=== PATIENT | female | born 1935 | race Caucasian/White ===

== ENCOUNTER → 2016-12-17 | Day surgery (SDC) | payer MEDICARE, OTHER ==
--- NOTE | 2016-12-17 08:49 | RAD ---
Indication low back pain for months. AP and lateral views of the lumbar spine were obtained and are compared to an examination 03/22/2015. There is mild scoliosis similar to the previous exam. Vertebral height and alignment are well maintained. An acute finding is not seen. Facet degenerative changes are noted in the lower lumbar spine similar to the previous exam. Vascular calcification is noted. IMPRESSION: Chronic changes in the lumbar spine. No acute finding or significant change relative to the previous exam
== END | disposition home or self-care (01) ==
LOC: RAD 07:45
PROVIDERS: ATTEND Family Medicine
DX: M41.86 Other forms of scoliosis, lumbar region (principal)
CPT/HCPCS: 72100

== ENCOUNTER → 2017-07-10 | Outpatient (CLI) | payer MEDICARE, OTHER ==
--- NOTE | 2017-07-10 13:48 | RAD ---
Left hand, 3 views, 07/10/2017: History: Persistent pain, prior trauma There is moderate patchy bony demineralization. No fracture or dislocation is evident. The soft tissues are unremarkable. IMPRESSION: 1. Demineralization. 2. No acute bony abnormality is detected. Left wrist, 3 views, 07/10/2017: There is moderate patchy bony demineralization. No fracture or dislocation is evident. The soft tissues are unremarkable. IMPRESSION: No acute bony abnormality is detected.
== END | disposition home or self-care (01) ==
LOC: RAD 12:56
PROVIDERS: ATTEND Family Medicine
DX: M81.8 Other osteoporosis without current pathological fracture (principal)
CPT/HCPCS: 73110; 73130

== ENCOUNTER → 2018-09-08 | Outpatient (CLI) | payer MEDICARE, OTHER ==
--- NOTE | 2018-09-08 12:46 | CARD ---
MR#: [id number] Date of Study: 09/08/2018 Ordering Physician: ROSSY CARBAJAL, Referring Physician: ROSSY CARBAJAL, Tech: Christie Graham LOU APPROVED REPORT EXAM: Two-dimensional and M-mode echocardiogram with Doppler and color Doppler. Other Information Quality : Good INDICATION Murmur 2D DIMENSIONS RVDd2.7 (2.9-3.5cm)Left Atrium(2D)3.2 (1.6-4.0cm) IVSd0.7 (0.7-1.1cm)Aortic Root(2D)2.7 (2.0-3.7cm) LVDd3.7 (3.9-5.9cm)LVOT Diameter2.0 (1.8-2.4cm) PWd0.7 (0.7-1.1cm)LVDs3.0 (2.5-4.0cm) FS (%) 19.5 %SV23.4 ml Aortic Valve AoV Peak Yoav.97.0cm/sAoV VTI18.3cm AO Peak GR.3.8mmHgLVOT Peak Yoav.85.7cm/s LVOT VTI 17.43cmAO Mean GR.2mmHg DANIELE (VMAX)2.26zo1GUH (VTI)2.92cm2 AI P 1/2 Itkx729zp Mitral Valve MV E Iavdtgwk28.0cm/sMV DECEL XNCR241dy MV A Aspzpgne890.4cm/sMV VRF34lg E/A Ratio0.6MVA (PHT)2.36cm2 TDI E/Lateral E'12.3E/Medial E'15.6 Tricuspid Valve TR P. Vutvvohk651ru/sRAP NBRVSHYW7ukWb TR Peak Gr.48qmQrQULB87vuVt Pulmonary Vein S1 Qnqpqrdt25.8cm/sD2 Mmawbaoz38.3cm/s LEFT VENTRICLE The left ventricle is normal size. There is normal left ventricular wall thickness. The left ventricu lar systolic function is normal and the ejection fraction is within normal range. Left ventricular ej ection fraction is 55-60%. There is normal LV segmental wall motion. Transmitral Doppler flow pattern is Grade I-abnormal relaxation pattern. RIGHT VENTRICLE The right ventricle is normal size. There is normal right ventricular wall thickness. The right ventr icular systolic function is normal. ATRIA The left atrium size is normal. The right atrium size is normal. The interatrial septum is intact wit h no evidence for an atrial septal defect or patent foramen ovale as noted on 2-D or Doppler imaging. AORTIC VALVE The aortic valve is calcified but opens well. Doppler and Color Flow revealed mild aortic regurgitati on. There is no significant aortic valvular stenosis. MITRAL VALVE The mitral valve is calcified but opens well. There is no evidence of mitral valve prolapse. There is no mitral valve stenosis. Doppler and Color-flow revealed mild mitral regurgitation. TRICUSPID VALVE The tricuspid valve is normal in structure and function. Doppler and Color Flow revealed trace tricus pid regurgitation. The PA pressure was estimated at 22 mmHg. There is no tricuspid valve stenosis. PULMONIC VALVE The pulmonic valve is not well visualized. Doppler and Color Flow revealed trace pulmonic valvular re gurgitation. There is no pulmonic valvular stenosis. GREAT VESSELS The aortic root is normal in size. The ascending aorta is normal in size. The IVC is normal in size a nd collapses >50% with inspiration. PERICARDIAL EFFUSION There is no evidence of significant pericardial effusion. Critical Notification Critical Value: No <Conclusion> The left ventricle is normal size. The left ventricular systolic function is normal and the ejection fraction is within normal range. Left ventricular ejection fraction is 55-60%. There is no significant aortic valvular stenosis. Doppler and Color Flow revealed mild aortic regurgitation. Doppler and Color-flow revealed mild mitral regurgitation. Doppler and Color Flow revealed trace tricuspid regurgitation. The PA pressure was estimated at 22 mmHg. Signed by : Rossy Carbajal MD Electronically Approved : 09/08/2018 12:46:11
== END | disposition home or self-care (01) ==
LOC: ECHO 10:34
PROVIDERS: ATTEND Internal Medicine Cardiovascular Disease
DX: I08.0 Rheumatic disorders of both mitral and aortic valves (principal); R00.8 Other abnormalities of heart beat
CPT/HCPCS: 93306

== ENCOUNTER → 2019-01-18 | Outpatient (CLI) | payer MEDICARE, OTHER ==
--- NOTE | 2019-01-18 12:02 | RAD ---
MR#: [id number] Date of Study: 01/18/2019 Ordering Physician: ROSSY ALMAZAN, Referring Physician: ROSSY ALMAZAN, Tech: Shiela Arias, NAKIA, RVT, RTR APPROVED REPORT Bilateral Lower Extremity Venous Study for DVT Patient Location: OUT-PATIENT Indications Lower Extremity Pain: Bilateral Findings The bilateral lower extremity deep veins were evaluated for thrombus with color Doppler, spectral and grayscale images. On the right the grayscale images of the common femoral, superficial femoral and popliteal veins do n ot demonstrate any evidence of thrombus and these veins appear to be compressible. The below-knee vei ns were not well visualized but grossly appear to be compressible. Spectral imaging and color Doppler do not reveal any evidence of obstruction to flow with normal respirophasic variation above the knee . Below the knee there is spontaneous flow noted. On the left, the grayscale images of the common femoral, superficial femoral and popliteal veins do n ot demonstrate any evidence of thrombus and these veins appear to be compressible. The below-knee vei ns again were not well visualized but grossly appear to be compressible. Spectral imaging and color D oppler do not reveal any evidence of obstruction to flow with normal respirophasic variation above th e knee. The below-knee veins demonstrate spontaneous flow. Critical Notification Critical Value: No <Conclusion> 1. Negative for DVT in the bilateral lower extremities. Signed by : Matias Treadwell, Electronically Approved : 01/18/2019 12:01:35
== END | disposition home or self-care (01) ==
LOC: US 11:08
PROVIDERS: ATTEND Internal Medicine Cardiovascular Disease
DX: M79.604 Pain in right leg (principal); M79.605 Pain in left leg
CPT/HCPCS: 93970

== ENCOUNTER → 2019-03-18 | Outpatient (CLI) | payer MEDICARE, OTHER ==
--- NOTE | 2019-03-18 12:49 | RAD ---
MRI Lumbar Spine without contrast History: Low back pain, right leg radiculopathy for 4 months Technique: Multiplanar, multi sequential noncontrast MR imaging was performed of the lumbar spine. Comparison: None Findings: There are multilevel Schmorl's nodes, greater degree of superior endplate concavity of T4, mild edema at site of superior L4 Schmorl's node. There is also very minimal edema associated with superior L2 Schmorl's nodes. There is moderate to severe L5-S1 degenerative disc disease, associated degenerative endplate change and mild amorphous endplate edema. There is fairly advanced degenerative disc disease at L2-3 and L1-2 and to lesser degree L4-5 and L3-4. There is mild grade 1 anterior spondylolisthesis at L4-5 and L3-4. There is mild to moderate dextroscoliosis centered near L2-3, levoscoliosis of the thoracic spine not fully evaluated. Conus terminates near T12-L1. There is a large hemangioma of the L3 vertebral body, slightly hyperintense on all sequences, associated trabecular thickening. There is a large heterogeneous left renal mass not fully evaluated, estimated about 5.9 cm in size. L1-L2: There is mild buckling of the ligamentum flavum and facet degenerative change. There is minimal disc osteophyte complex eccentric to left lateral recess. There is mild narrowing of the far left lateral recess. There is moderate narrowing of the left neural foramen by facet and disc osteophyte complex, right neural foramen adequate. L2-L3: There is mild buckling of the ligamentum flavum and facet degenerative change. There is very shallow protrusion in the far left lateral recess. There is minimal narrowing the far lateral recesses bilaterally. Neural foramina are not significantly narrowed. L3-L4: There is prominence of posterior epidural fat centrally. There is minimal buckling of the ligamentum flavum and facet degenerative change. There is minimal narrowing of the far lateral recesses greater on the left. Neural foramina are overall adequate. L4-L5: There is espv-sx-jdzlwsyo buckling of the ligamentum flavum and minimal facet degenerative change. There is hzhn-pw-jovkwulo narrowing of the far right lateral recess and to a somewhat lesser degree on the left. There is mild narrowing of the right neural foramen, left neural foramen adequate. L5-S1: There is shallow protrusion more eccentric to the right lateral recess up to about 1 to 2 mm AP, near the descending right S1 nerve root without displacement, very mild right lateral recess stenosis. There is minimal facet degenerative change. There is mild narrowing of the right neural foramen greater distally. There is contact of the proximal extraforaminal right L5 nerve root by disc osteophyte complex/shallow protrusion. Impression: 1. There is a large heterogeneous left renal mass, concerning for renal cell carcinoma. 2. There is multilevel lumbar degenerative disc disease greatest at L1-2, L2-3, L5-S1. 3. There is multilevel variable lateral recess stenosis as described most notable right greater than left at L4-5. 4. There is moderate narrowing of the left L1-2 neural foramen. There is minimal narrowing on the right at L5-S1 although contact of the extraforaminal right L5 nerve root. 5. There is reverse S-shaped scoliosis of the thoracolumbar spine. 6. There are multilevel Schmorl's nodes, mild associated edema as superiorly of L4 and to lesser degree at L2. Findings discussed with Marsha DAVID at 03/18/2019 12:46 PM. Electronically signed by: Naif Liu MD (03/18/2019 12:46 PM) [facility]
== END | disposition home or self-care (01) ==
LOC: MRI 11:04
PROVIDERS: ATTEND Family Medicine
DX: M43.16 Spondylolisthesis, lumbar region (principal); M51.17 Intervertebral disc disorders with radiculopathy, lumbosacral region; M41.85 Other forms of scoliosis, thoracolumbar region; M51.46 Schmorl's nodes, lumbar region; M48.07 Spinal stenosis, lumbosacral region; M25.78 Osteophyte, vertebrae; N28.89 Other specified disorders of kidney and ureter; F40.240 Claustrophobia
CPT/HCPCS: 72148

== ENCOUNTER → 2019-03-22 | Outpatient (CLI) | payer MEDICARE, OTHER ==
--- NOTE | 2019-03-22 15:59 | KCIC ---
EXAM: Renal sonogram. HISTORY: Renal mass on MRI. TECHNIQUE: Sonographic imaging of the kidneys and bladder was performed. COMPARISON: MRI dated 03/18/2019. FINDINGS: There is a large solid mass with internal blood flow within the superior left kidney measuring 5.1 cm in maximum dimension. There are simple appearing cysts within both kidneys, measuring 5.2 cm within the superolateral right kidney and 1.4 cm within the left lower pole. The kidneys are normal in size. There is no hydronephrosis. The bladder is unremarkable. IMPRESSION: 1. 5.1 cm left renal mass, the appearance of which favors renal cell carcinoma. 2. Simple appearing bilateral renal cysts. Electronically signed by: Shira Fortune MD (03/22/2019 3:56 PM) [facility]
== END | disposition home or self-care (01) ==
LOC: KCIC US 15:16
PROVIDERS: ATTEND Family Medicine
DX: N28.89 Other specified disorders of kidney and ureter (principal)
CPT/HCPCS: 76770

== ENCOUNTER → 2019-03-31 | Outpatient (CLI) | payer MEDICARE, OTHER ==
[2019-03-31 13:48] LABS: BASO % 0 % (0-3); EOS % 0 % (0-3); HEMATOCRIT 47.7 % (36.0-47.0); HEMOGLOBIN 16.2 g/dL (12.0-15.5); LYMPH # 0.8 x10^3/uL (1.0-4.8); LYMPH % 11 % (24-48); MEAN CORPUSCULAR HEMOGLOBIN 32 pg (25-35); MEAN CORPUSCULAR HGB CONC 34 g/dL (31-37); MEAN CORPUSCULAR VOLUME 95 fL (79-100); MONO # 0.1 x10^3/uL (0.0-1.1); MONO % 2 % (0-9); NEUT # 6.5 x10^3/uL (1.8-7.7); NEUT % 87 % (31-73); PLATELET COUNT 191 x10^3/uL (140-400); RED BLOOD COUNT 5.04 x10^6/uL (3.50-5.40); RED CELL DISTRIBUTION WIDTH 14.3 % (11.5-14.5); WHITE BLOOD COUNT 7.4 x10^3/uL (4.0-11.0)
[2019-03-31 14:11] LABS: ALBUMIN 4.2 g/dL (3.4-5.0); GFR 53.1; PHOSPHORUS 3.5 mg/dL (2.6-4.7); POTASSIUM 4.4 mmol/L (3.5-5.1); TOTAL BILIRUBIN 0.3 mg/dL (0.2-1.0); TOTAL PROTEIN 8.4 g/dL (6.4-8.2); URIC ACID 4.6 mg/dL (2.6-6.0)
[2019-03-31 14:34] LABS: % LYMPHS 7 % (24-48); % MONOS 1 % (0-10); % SEGS 92 % (35-66); PLT ESTIMATE ADEQUATE (ADEQUATE)
== END | disposition home or self-care (01) ==
LOC: LAB 13:16
PROVIDERS: ATTEND Urology
DX: R93.41 Abnormal radiologic findings on diagnostic imaging of renal pelvis, ureter, or bladder (principal)
CPT/HCPCS: 36415; 80053; 83735; 84100; 84550; 85007; 85025

== ENCOUNTER → 2019-04-05 | Outpatient (CLI) | payer MEDICARE, OTHER ==
[~2019-04-05] MED LIST: CONTRAST GIVEN. MC PRN; IOHEXOL 240 MG/ML 50ML VIAL. PO ONE; IOHEXOL 300 MG/ML 100ML VIAL. IV ONE
--- NOTE | 2019-04-05 14:54 | RAD ---
Examination: CT CHEST ABDOMEN PELVIS WO/W History: Renal mass. Evaluate for metastasis. Comparison/Correlation: Renal ultrasound exam 03/22/2019 Findings: Axial images of the chest, abdomen, and pelvis were obtained following IV contrast. Sagittal and coronal reformatted images were provided. Exam was performed according to renal mass protocol. Precontrast axial images of the abdomen were also obtained for purposes of this protocol. Tracheal bronchial tree is unremarkable. Diffuse emphysematous involvement of the lung fernando is evident. Minimal linear costophrenic sulcus atelectasis bilaterally is present. No pneumothorax. Biapical pleural thickening is mild. Mild biapical pleural thickening is present. Costophrenic angle linear atelectasis or scarring No enlarged thoracic lymph nodes. No pleural or pericardial effusion. Marked calcification is present involving the left anterior descending coronary artery. Low-attenuation lesion involving the left hepatic dome measuring 2.3 cm x 1.8 cm x 2.1 cm present. On precontrast imaging, this has Hounsfield units of 14 while on postcontrast imaging, density of up to 20 Hounsfield units is evident. Multiple additional liver lesions are present but to small to characterize. A bilobed low-attenuation lesion or 2 adjacent lesions involving the left hepatic lobe medial segment measuring a total of 1.5 cm x 0.9 cm in the axial plane is present adjacent to the intersegmental fissure. This may have mild enhancement with Hounsfield units of 10 on precontrast imaging and also units of up to 15 postcontrast imaging. Spleen, pancreas, and adrenal glands are unremarkable. Right renal superior pole cyst is present measuring up to 5.1 cm diameter. There are smaller low-attenuation lesions involving the right kidney which appear to represent cysts. Left renal interpolar region heterogeneously enhancing mass is present measuring 5.9 cm transverse by 4.6 cm anteroposterior by 5.2 cm longitudinal. A left renal inferior pole, there is a cyst measuring up to 1.6 cm diameter. Multiple very small to characterize lesions involving the left renal superior pole are present probably representing cysts. Calcific involvement of the abdominal aorta and iliac arteries is noted. Appendix is normal. Moderate quantity of stool in the colon noted. The inferior vena cava is unremarkable. Renal veins opacify normally with contrast.. Urinary bladder is unremarkable. Left hip joint prosthesis noted. Urinary bladder is unremarkable. No ascites or pelvic free fluid. Diverticulosis is present. Dextroconvexity of the thoracolumbar spine is evident. Degenerative disc space narrowing from L1 to L3 is noted. Schmorl's node involves the L4 superior endplate. Facet joint degenerative changes of the lumbar spine are present. Small umbilical hernia contains omental fat. Left periumbilical hernia defect containing omental fat is present. Impression: Left renal mass of concern for renal cell carcinoma or other primary neoplastic process. Multiple bilateral very small to characterize renal lesions which probably are cysts. Multiple hepatic lesions which are probably cysts. Further evaluation with MRI of the liver without and with contrast is recommended if able for more definitive assessment in this patient with a suspected malignancy. Renal lesions may also be assessed on MRI of the liver exam without and with contrast. Emphysema. Electronically signed by: Stanford Barbour MD (04/05/2019 2:51 PM) [facility]
--- NOTE | 2019-04-05 16:15 | RAD ---
Examination: BONE SCAN WHOLE BODY History: Left renal mass Comparison/Correlation: 04/05/2019 CT chest abdomen and pelvis without and with contrast Findings: 25 mCi technetium 99m MDP was intravenously administered for purposes of total-body bone scintigraphy. Uptake of radiotracer involving the mid to lower lumbar spine compatible with degenerative change in this patient with dextroconvex scoliosis is identified. There is no suspicious uptake of radiotracer to suggest neoplastic or metastatic disease. Radiolucency corresponding to the left hip joint prosthesis is identified. Radiotracer is noted within the kidneys and urinary bladder. Impression: No abnormal uptake to suggest metastatic disease. Electronically signed by: Stanford Barbour MD (04/05/2019 4:11 PM) [facility]
== END | disposition home or self-care (01) ==
LOC: NM 07:35
PROVIDERS: ATTEND Urology
DX: J43.9 Emphysema, unspecified (principal); J98.11 Atelectasis; J94.8 Other specified pleural conditions; I25.10 Atherosclerotic heart disease of native coronary artery without angina pectoris; K76.9 Liver disease, unspecified; N28.89 Other specified disorders of kidney and ureter; K57.90 Diverticulosis of intestine, part unspecified, without perforation or abscess without bleeding; N28.1 Cyst of kidney, acquired; M51.46 Schmorl's nodes, lumbar region; K42.9 Umbilical hernia without obstruction or gangrene; M48.061 Spinal stenosis, lumbar region without neurogenic claudication; M41.86 Other forms of scoliosis, lumbar region
CPT/HCPCS: 71270; 74178; 78306; A9503; Q9966; Q9967